=== PATIENT | male | born 1965 | race Caucasian/White ===

== ENCOUNTER → 2016-07-10 | Outpatient (REF) | payer OTHER ==
[2016-07-10 18:43] LABS: BASO % 0.4 % (0.0-1.0); EOS # 0.1 K/mm3 (0.0-0.50); LARGE UNSTAINED CELL # 0.1 K/mm3 (0.0-0.4); LARGE UNSTAINED CELL % 1.3 % (0.0-4.0); LYMPH # 1.6 K/mm3 (1.5-4.5); LYMPH % 17.6 % (24.0-44.0); MEAN CORPUSCULAR HEMOGLOBIN 31.7 pg (27.0-33.0); MEAN CORPUSCULAR HGB CONC 33.6 g/dl (32.0-36.5); MEAN CORPUSCULAR VOLUME 94.6 fl (80.0-96.0); MONO # 0.4 K/mm3 (0.0-0.8); MONO % 4.7 % (0.0-5.0); PLATELET COUNT, AUTOMATED 135 k/mm3 (150-450); RED CELL DISTRIBUTION WIDTH 12.7 % (11.5-14.5); WHITE BLOOD COUNT 9.3 K/mm3 (4.0-10.0)
[2016-07-10 19:10] LABS: ALBUMIN 3.9 GM/DL (3.2-5.2); ALBUMIN/GLOBULIN RATIO 1.22 (1.00-1.93); ALKALINE PHOSPHATASE 97 U/L (45-117); ALT/SGPT 27 U/L (12-78); ANION GAP 5 MEQ/L (8-16); AST/SGOT 11 U/L (15-37); BILIRUBIN,TOTAL 0.6 MG/DL (0.2-1.0); BLOOD UREA NITROGEN 12 MG/DL (7-18); CALCIUM LEVEL 8.7 MG/DL (8.5-10.1); CARBON DIOXIDE LEVEL 30 MEQ/L (21-32); CHLORIDE LEVEL 106 MEQ/L (98-107); CREATININE FOR GFR 0.92 MG/DL (0.70-1.30); GLOMERULAR FILTRATION RATE > 60.0 (>56); GLUCOSE, FASTING 83 MG/DL (70-105); POTASSIUM SERUM 4.3 MEQ/L (3.5-5.1); SODIUM LEVEL 141 MEQ/L (136-145); TOTAL PROTEIN 7.1 GM/DL (6.4-8.2)
== END | disposition home or self-care (01) ==
LOC: M LAB REF 16:39
PROVIDERS: ATTEND Physician Assistant
DX: R10.31 Right lower quadrant pain (principal)

== ENCOUNTER → 2017-06-02 | Outpatient (CLI) | payer OTHER ==
--- NOTE | 2017-06-02 15:05 | REP ---
Chest two views HISTORY: Cough Comparison: 12/28/2015 Linear densities are present in the right lower lobe consistent with scar. The left lung is clear. The heart is normal in size. The pulmonary vasculature is normal in appearance. The bony structure is intact. IMPRESSION: Right lower lobe scar. Signed by Daryn Odell MD 06/02/2017 02:57 P
== END ==
LOC: M RAD 13:56
PROVIDERS: ATTEND Physician Assistant Surgical
DX: R05 Cough (principal)

== ENCOUNTER → 2017-11-09 | Outpatient (REF) | payer OTHER ==
[2017-11-09 12:27] LABS: SLIDE REVIEW Report; SOURCE PERIPHERAL SMEAR
[2017-11-09 13:09] LABS: CONTROL LINE HPYORI INT CTR LINE PRESENT; H PYLORI QUALITATIVE IgG NEGATIVE (NEGATIVE)
[2017-11-10 14:15] LABS: ANTINUCLEAR ANTIBODIES DIRECT Negative (Negative)
== END ==
LOC: M LAB REF 12:16
DX: D69.6 Thrombocytopenia, unspecified (principal)
CPT/HCPCS: 86677

== ENCOUNTER → 2017-11-16 | Outpatient (CLI) | payer OTHER, SELFPAY | LOC: M RAD 08:54 | DX: R91.8 Other nonspecific abnormal finding of lung field (principal); D69.6 Thrombocytopenia, unspecified | CPT/HCPCS: 71250 ==

== ENCOUNTER → 2018-11-29 | Outpatient (CLI) | payer OTHER, SELFPAY ==
[~2018-11-29] MED LIST: ATOR40TA75 PO; BACL10TA2 PO; GABA-845 PO; HYDR-643 PO; ISOVUE-370 76% 100ML VIAL (Q9967) As Ordered ONE; SERT-155 PO
--- NOTE | 2018-11-29 13:57 | REP ---
Clinical: Lung nodule. Technique: Axial contrast enhanced images from the thoracic inlet to the upper abdomen with coronal and sagittal re-formations using 100 ml Isovue 370 intravenous contrast material. Comparison: 11/16/2017, 01/09/2015 . Findings: Lung josé demonstrate mild posterior basilar dependent changes and very minimal bibasilar fibroatelectatic changes similar to prior examination. There is no evidence for consolidation, effusion, or pneumothorax. Previously identified left upper lobe, left lower lobe, and right lower lobe nodules as well as minimal scarring in the right middle lobe remains stable. No new significant pulmonary nodule or mass lesion is appreciated. No adenopathy. Mediastinum demonstrates normal thoracic aorta, pulmonary vasculature and heart/pericardium. Surrounding musculoskeletal structures are intact. Impression: Scattered noncalcified pulmonary nodules and small focal areas of scarring remains stable through 11/16/2017, and excluding the smaller 4 mm noncalcified nodule in the left lower lobe (image 66) also remains stable through 01/09/2015. Electronically Signed by Yasmani Duke MD 11/29/2018 01:49 P
== END ==
LOC: M RAD 10:45
PROVIDERS: ATTEND Internal Medicine Hematology & Oncology
DX: R91.8 Other nonspecific abnormal finding of lung field (principal); F17.200 Nicotine dependence, unspecified, uncomplicated
CPT/HCPCS: 71260; Q9967

== ENCOUNTER → 2020-11-25 | Outpatient (CLI) | payer OTHER ==
[~2020-11-25] MED LIST changes: +GABA-283 PO; -GABA-845 PO; +HYDR-4514 PO; -ISOVUE-370 76% 100ML VIAL (Q9967) As Ordered ONE; -SERT-155 PO; +SERT50TA29 PO
--- NOTE | 2020-11-25 19:58 | REPVR ---
PROCEDURE INFORMATION: Exam: MR Lumbar Spine Without Contrast Exam date and time: 11/25/2020 3:09 PM Age: 55 years old Clinical indication: Patient HX: Low back pain for several years and worsening, nki, ; additional info: Lumbar radiculopathy TECHNIQUE: Imaging protocol: Multiplanar magnetic resonance images of the lumbar spine without intravenous contrast. COMPARISON: No relevant prior studies available. FINDINGS: Vertebrae: T1 weighted images demonstrate mottled decreased signal throughout the vertebrae, findings which can be seen in association with chronic anemia or other myeloproliferative abnormality. This should be correlated with clinical evaluation. Spinal cord: Normal signal. No cord compression. L1-L2: There is a [id number] degenerative central spinal stenosis at L1-L2 secondary to diffuse annular bulging, thickened ligamentum flavum without facet joint arthropathy. L2-L3: There is a moderate degenerative central spinal stenosis at L2-L3 secondary to diffuse annular bulging, thickened ligamentum flavum without facet joint arthropathy. Also noted is a small right posterior foraminal disc protrusion resulting in narrowing of the proximal neural foramen and mild compression of the anterolateral aspect of the thecal sac. L3-L4: No significant disc disease. No significant spinal canal stenosis. No neural foraminal stenosis. L4-L5: There is a mild degenerative central spinal stenosis at L4-L5 secondary to diffuse annular bulging, thickened ligamentum flavum with mild facet joint arthropathy. L5-S1: Diffusely bulging annulus L5-S1 without neural compromise. Mild bilateral facet joint arthropathy. Soft tissues: Unremarkable. IMPRESSION: 1. T1 weighted images demonstrate mottled decreased signal throughout the vertebrae, findings which can be seen in association with chronic anemia or other myeloproliferative abnormality. This should be correlated with clinical evaluation. 2. Degenerative spondylosis with a mild to moderate central spinal stenosis at L1-L2, moderate degenerative central spinal stenosis at L2-L3 with a right posterolateral foraminal disc protrusion narrowing the ipsilateral proximal neural foramen and resulting mild compression of the thecal sac, mild degenerative central spinal stenosis at L4-L5. Diffusely bulging annulus L5-S1 without neural compromise. Electronically signed by: John Arguello On 11/25/2020 19:58:10 PM
== END ==
LOC: M PLARAD 14:25
PROVIDERS: ATTEND Pain Medicine Interventional Pain Medicine
DX: M54.16 Radiculopathy, lumbar region (principal)

== ENCOUNTER → 2021-06-21 | Outpatient (CLI) | payer OTHER ==
--- NOTE | 2021-06-21 23:26 | REPVR ---
PROCEDURE INFORMATION: Exam: MR Cervical Spine Without Contrast Exam date and time: 06/21/2021 11:42 AM Age: 56 years old Clinical indication: Neck pain; Prior surgery; Surgery date: 6+ months; Surgery type: Fusion; Additional info: Radiculopathy TECHNIQUE: Imaging protocol: Multiplanar magnetic resonance images of the cervical spine without contrast. COMPARISON: CT Spine,cervical w/o contrast 03/01/2015 12:31 PM FINDINGS: Chronic ACDF changes from C5 through C7. Cervical vertebral body heights are intact. The dens is intact. No abnormal marrow signal. No cord compression, expansion, or abnormal cord signal. Visualized structures of the posterior fossa are unremarkable. Soft tissues are unremarkable. C2-C3: No significant canal or foraminal narrowing. C3-C4: Slight posterior disc protrusion and uncovertebral spurring cause mild canal narrowing with mild left and [id number] right foraminal narrowing. C4-C5: Slight posterior disc protrusion causes mild canal narrowing and mild bilateral foraminal narrowing. C5-C6: Status post ACDF. No significant canal or foraminal narrowing. C6-C7: Status post ACDF. Uncovertebral spurring causes persistent moderate left and severe right foraminal narrowing. Mild canal narrowing. C7-T1: Slight posterior disc osteophyte complex and uncovertebral spurring cause mild canal narrowing and mild left foraminal narrowing. IMPRESSION: Multilevel spondylotic changes of the cervical spine, as detailed above. Electronically signed by: Long Villanueva On 06/21/2021 23:25:39 PM
== END ==
LOC: M PLAIMG 09:54
PROVIDERS: ATTEND Nurse Practitioner Family
DX: M54.12 Radiculopathy, cervical region (principal)